=== PATIENT | male | born 1970 | race Caucasian/White ===

== ENCOUNTER 2019-03-12 07:03 | Outpatient (CLI) | payer BC, SELFPAY ==
--- NOTE | 2019-03-12 07:40 | DI.US_ITS ---
SYMPTOM/DIAGNOSIS: ELEVATED LIVER ENZYMES R74.8 ABDOMINAL ULTRASOUND: The aorta and vena cava are unremarkable. The liver is echogenic consistent with fatty infiltration. The gallbladder is normal. There are no gallstones or evidence of ductal dilatation. The pancreas is unremarkable. The spleen measures 12 cm in length. The kidneys are unremarkable. There is no evidence of free fluid. SUMMARY: Findings consistent with fatty infiltration of the liver. The spleen is somewhat enlarged.
== END 2019-03-12 07:23 ==
PROVIDERS: PCP Family Medicine Adult Medicine; Visit Provider Nurse Practitioner Adult Health
DX: R74.8 Abnormal levels of other serum enzymes (principal); K76.0 Fatty (change of) liver, not elsewhere classified; R16.1 Splenomegaly, not elsewhere classified
CPT/HCPCS: 76700

== ENCOUNTER 2020-07-01 14:02 | Outpatient (CLI) | payer BC, SELFPAY ==
[2020-07-04 21:06] LABS: Patient Race White; SARS-CoV-2 RNA Undetected (Undetected); SARS-CoV-2 Specimen Source Nasal
== END 2020-07-01 14:22 ==
PROVIDERS: PCP Family Medicine Adult Medicine; Visit Provider Pediatrics
DX: Z11.59 Encounter for screening for other viral diseases (principal)
CPT/HCPCS: U0003

== ENCOUNTER 2020-07-06 02:06 | Outpatient (CLI) | payer BC, SELFPAY ==
[2020-07-09 13:52] LABS: Patient Race White; SARS-CoV-2 RNA Undetected (Undetected); SARS-CoV-2 Specimen Source Nasal
== END 2020-07-06 02:26 ==
PROVIDERS: PCP Family Medicine Adult Medicine; Visit Provider Pediatrics
DX: Z11.59 Encounter for screening for other viral diseases (principal); Z20.828 Contact with and (suspected) exposure to other viral communicable diseases
CPT/HCPCS: U0003